=== PATIENT | female | born 1975 ===

== ENCOUNTER 2021-02-12 09:00 | Emergency (ER) | payer SELFPAY ==
[2021-02-12] MEDS ORDERED: Ketorolac 15 MG/ML SDV IM ONE (09:52)
[2021-02-12] MEDS ORDERED: Acetaminophen/HYDROcodone 325-5 MG Tab PO ONE (10:32)
--- NOTE | 2021-02-12 10:41 | CR ---
INDICATION: Pain right ribcage . Comparison: None. TECHNIQUE: Five view study chest and right rib cage detail . Findings: No evidence of fracture involving the right ribcage. No pneumothorax or pleural effusion. Normal size cardiac silhouette. No evidence of acute pneumonic infiltrates. IMPRESSION: Negative radiographic examination of the chest and right rib cage detail. Dictated by Suzanne Bethea MD @ 02/12/2021 10:40:[address] Suzanne Bethea @ Feb 12 2021 10:40AM
[2021-02-12 11:35] LABS: BLOOD UREA NITROGEN,BUN 8 mg/dL (7.0-18.0); CARBON DIOXIDE,CO2 27.4 mmol/L (21.0-32.0); CHLORIDE,CL 102 mmol/L (98-107); GLUCOSE RANDOM 91 mg/dL (74-106); LIPASE 78 U/L (73-393); POTASSIUM,K 4.3 mmol/L (3.5-5.1); SODIUM,NA 138 mmol/L (136-145)
--- NOTE | 2021-02-12 11:52 | US ---
INDICATION: Upper quadrant pain TECHNIQUE: Ultrasound abdomen limited. Sonographic images of the right upper quadrant were obtained using cadet-scale and color Doppler images. COMPARISON: None FINDINGS: Liver: Normal in size and echotexture. No masses. No intrahepatic biliary dilatation. Hepatopetal portal flow. Gallbladder: No stones or sludge. Normal wall thickness. No pericholecystic fluid. Mildly positive sonographic Rausch sign. Common bile duct: 2 mm. Pancreas: Suboptimally visualized. Right kidney: 9.0 cm. Normal echotexture and cortex. No masses, stones, or hydronephrosis. IMPRESSION: Sonographically normal gallbladder and common bile duct. Mildly positive sonographic Rausch sign. Dictated by Hieu Wilhelm MD @ 02/12/2021 11:50:[address] Hieu Wilhelm @ Feb 12 2021 11:50AM
--- NOTE | 2021-02-12 12:20 | EDM.PDOC ---
ED HPI GENERAL MEDICAL PROBLEM - General Chief Complaint: General Stated Complaint: PAIN IN RIB CAGE LEFT SIDE Time Seen by Provider: 02/12/21 10:12 Source of Information: Reports: Patient History Limitations: Reports: No Limitations - History of Present Illness INITIAL COMMENTS - FREE TEXT/NARRATIVE: HISTORY AND PHYSICAL: History of present illness: Patient is a 45-year-old female who presents to the ED today with concern of right-sided rib pain over the past 2 to 3 days. Patient states that she just recently moved to [place] and has been moving boxes and hanging pictures. Patient states she was originally having some right-sided shoulder pain and states that she was having her friend rub out the knot in her shoulder. Patient states that that was 2 days ago. Patient states that she then started noticing right-sided rib pain that is worse if she takes a big deep breath in. Patient denies any direct trauma or injury but states that she does notice moving boxes and pictures does hurt the area. Patient denies any other symptoms or concerns. Patient denies fever, chills, chest pain, shortness of breath, or cough. Denies headache, neck stiff ness, change in vision, syncope, or near syncope. Denies nausea, vomiting, abdominal pain, diarrhea, constipation, or dysuria. Has not noted any blood in urine or stool. Patient has been eating and drinking appropriately. Review of systems: As per history of present illness and below otherwise all systems reviewed and negative. Past medical history: As per history of present illness and as reviewed below otherwise noncontributory. Surgical history: As per history of present illness and as reviewed below otherwise noncontributory. Social history: See social history for further information Family history: As per history of present illness and as reviewed below otherwise noncontributory. Physical exam: General: Patient is alert, oriented, and in no acute distress. Patient standing on exam table, holding right lower rib area. Vitals stable and reviewed by me. HEENT: Atraumatic, normocephalic, pupils equal and reactive bilaterally, negative for conjunctival pallor or scleral icterus, mucous membranes moist, TMs normal bilaterally, throat clear, neck supple, nontender, trachea midline. No drooling or trismus noted. No meningeal signs. No hot potato voice noted. Lungs: Clear to auscultation, breath sounds equal bilaterally, chest nontender. Heart: S1S2, regular rate and rhythm without overt murmur Abdomen: Pain to palpation of ribs #9-10 on the anterior rib cage which difficult to distinguish from RUQ as area is tender with negative dominique sign. Otherwise, Soft, nondistended, nontender. Negative for masses or hepatosplenomegaly. Negative for costovertebral tenderness. Pelvis: Stable nontender. Genitourinary: Deferred. Rectal: Deferred. Skin: Intact, warm, dry. No lesions or rashes noted. Extremities: Atraumatic, negative for cords or calf pain. Neurovascular unremarkable. Neuro: Awake, alert, oriented. Cranial nerves II through XII unremarkable. Cerebellum unremarkable. Motor and sensory unremarkable throughout. Exam nonfocal. Notes: On initial exam, patient is vitally stable, nontoxic, but does have discomfort of her anterior right rib cage and to the right upper abdomen without guarding, negative rebound. Will obtain basic labwork, XR of right ribs/chest and RUQ US. CBC shows mild leukocytosis at 11.16 and other mild derangements that are unremarkable. CMP is unremarkable. Urinalysis is clear. Urine hCG negative. Rib x-ray shows negative radiographic examination of the chest and right rib cage. Right upper quadrant ultrasound shows sonographically normal gallbladder and common bile duct. Upon reevaluation of patient, she is much more comfortable given therapeutics today in the ED and is sitting comfortably on exam table. Patient remains vitally stable. Signs and symptoms that were prompt return to the ED thoroughly discussed with patient. Discussed importance for follow-up with a primary care provider. Voices understanding and is agreeable to plan of care. Denies any further questions or concerns at this time. Diagnostics: CBC, CMP, UA, Uhcg, Rib w chest CXR, RUQ US Therapeutics: Toradol, [place] 5/325 Prescription: None Impression: Right rib pain Plan: 1. Rest, ice, elevate the affected area. You can apply ice 15 minutes on, 15 minutes off. 2. Tylenol and/or Ibuprofen as directed for pain management or discomfort. 3. Follow up with the primary care provider as discussed. Return to the ED as needed and as discussed. Definitive disposition and diagnosis as appropriate pending reevaluation and review of above. right shoulder & right ribs Pain Score (Numeric/FACES): 10 - Related Data Allergies Allergy/AdvReac Type Severity Reaction Status Date / Time No Known Allergies Allergy Verified 02/12/21 09:56 Home Meds: Home Meds . [No Known Home Meds] 02/12/21 [History] Past Medical History - Past Health History Medical/Surgical History: Denies Medical/Surgical History Social & Family History - Family History Family Medical History: No Pertinent Family History - Tobacco Use Tobacco Use Status *Q: Never Tobacco User - Recreational Drug Use Recreational Drug Use: No ED ROS GENERAL - Review of Systems Review Of Systems: Comprehensive ROS is negative, except as noted in HPI. ED EXAM, GENERAL - Physical Exam Exam: See Below (see dictation) Course - Vital Signs Last Recorded V/S: Last Vital Signs Temp 96.8 F L 02/12/21 09:54 Pulse 88 02/12/21 12:41 Resp 18 02/12/21 09:54 BP 118/73 02/12/21 12:41 Pulse Ox 94 L 02/12/21 12:41 - Orders/Labs/Meds Labs: Laboratory Tests 02/12/21 02/12/21 02/12/21 Range/Units 10:22 10:22 10:51 WBC 11.16 H (4.0-11.0) K/uL RBC 5.03 (4.30-5.90) M/uL Hgb 13.3 (12.0-16.0) g/dL Hct 40.8 (36.0-46.0) % MCV 81.1 (80.0-98.0) fL MCH 26.4 L (27.0-32.0) pg MCHC 32.6 (31.0-37.0) g/dL RDW Std Deviation 38.6 (28.0-62.0) fl RDW Coeff of Debby 13 (11.0-15.0) % Plt Count 444 H (150-400) K/uL MPV 8.60 (7.40-12.00) fL Neut % (Auto) 77.0 (48.0-80.0) % Lymph % (Auto) 15.5 L (16.0-40.0) % Lawrence % (Auto) 6.6 (0.0-15.0) % Eos % (Auto) 0.7 (0.0-7.0) % Baso % (Auto) 0.2 (0.0-1.5) % Neut # (Auto) 8.6 H (1.4-5.7) K/uL Lymph # (Auto) 1.7 (0.6-2.4) K/uL Lawrence # (Auto) 0.7 (0.0-0.8) K/uL Eos # (Auto) 0.1 (0.0-0.7) K/uL Baso # (Auto) 0.0 (0.0-0.1) K/uL Nucleated RBC % 0.0 /100WBC Nucleated RBCs # 0 K/uL Sodium (136-145) mmol/L Potassium (3.5-5.1) mmol/L Chloride (98-107) mmol/L Carbon Dioxide (21.0-32.0) mmol/L BUN (7.0-18.0) mg/dL Creatinine (0.6-1.0) mg/dL Est Cr Clr Drug Dosing mL/min Estimated GFR (MDRD) ml/min Glucose (74-106) mg/dL Calcium (8.5-10.1) mg/dL Total Bilirubin (0.2-1.0) mg/dL AST (15-37) IU/L ALT (14-63) IU/L Alkaline Phosphatase (46-116) U/L Troponin I (0.000-0.056) ng/mL Total Protein (6.4-8.2) g/dL Albumin (3.4-5.0) g/dL Globulin (2.6-4.0) g/dL Albumin/Globulin Ratio (0.9-1.6) Lipase (73-393) U/L Urine Color YELLOW Urine Appearance CLEAR Urine pH 6.5 (5.0-8.0) Ur Specific Shorter 1.010 (1.001-1.035) Urine Protein NEGATIVE (NEGATIVE) mg/dL Urine Glucose (UA) NEGATIVE (NEGATIVE) mg/dL Urine Ketones NEGATIVE (NEGATIVE) mg/dL Urine Occult Blood NEGATIVE (NEGATIVE) Urine Nitrite NEGATIVE (NEGATIVE) Urine Bilirubin NEGATIVE (NEGATIVE) Urine Urobilinogen 0.2 (<2.0) EU/dL Ur Leukocyte Esterase NEGATIVE (NEGATIVE) Urine HCG, Qual NEGATIVE (NEGATIVE) 02/12/21 Range/Units 10:51 WBC (4.0-11.0) K/uL RBC (4.30-5.90) M/uL Hgb (12.0-16.0) g/dL Hct (36.0-46.0) % MCV (80.0-98.0) fL MCH (27.0-32.0) pg MCHC (31.0-37.0) g/dL RDW Std Deviation (28.0-62.0) fl RDW Coeff of Debby (11.0-15.0) % Plt Count (150-400) K/uL MPV (7.40-12.00) fL Neut % (Auto) (48.0-80.0) % Lymph % (Auto) (16.0-40.0) % Lawrence % (Auto) (0.0-15.0) % Eos % (Auto) (0.0-7.0) % Baso % (Auto) (0.0-1.5) % Neut # (Auto) (1.4-5.7) K/uL Lymph # (Auto) (0.6-2.4) K/uL Lawrence # (Auto) (0.0-0.8) K/uL Eos # (Auto) (0.0-0.7) K/uL Baso # (Auto) (0.0-0.1) K/uL Nucleated RBC % /100WBC Nucleated RBCs # K/uL Sodium 138 (136-145) mmol/L Potassium 4.3 (3.5-5.1) mmol/L Chloride 102 (98-107) mmol/L Carbon Dioxide 27.4 (21.0-32.0) mmol/L BUN 8 (7.0-18.0) mg/dL Creatinine 0.9 (0.6-1.0) mg/dL Est Cr Clr Drug Dosing 69.60 mL/min Estimated GFR (MDRD) > 60.0 ml/min Glucose 91 (74-106) mg/dL Calcium 8.9 (8.5-10.1) mg/dL Total Bilirubin 0.3 (0.2-1.0) mg/dL AST 19 (15-37) IU/L ALT 31 (14-63) IU/L Alkaline Phosphatase 124 H (46-116) U/L Troponin I < 0.050 (0.000-0.056) ng/mL Total Protein 8.2 (6.4-8.2) g/dL Albumin 3.0 L (3.4-5.0) g/dL Globulin 5.2 H (2.6-4.0) g/dL Albumin/Globulin Ratio 0.6 L (0.9-1.6) Lipase 78 (73-393) U/L Urine Color Urine Appearance Urine pH (5.0-8.0) Ur Specific Shorter (1.001-1.035) Urine Protein (NEGATIVE) mg/dL Urine Glucose (UA) (NEGATIVE) mg/dL Urine Ketones (NEGATIVE) mg/dL Urine Occult Blood (NEGATIVE) Urine Nitrite (NEGATIVE) Urine Bilirubin (NEGATIVE) Urine Urobilinogen (<2.0) EU/dL Ur Leukocyte Esterase (NEGATIVE) Urine HCG, Qual (NEGATIVE) Meds: Medications Discontinued Medications Generic Name Dose Route Start Last Admin Trade Name Freq PRN Reason Stop Dose Admin Hydrocodone Bitart/Acetaminophen 1 tab 02/12/21 10:32 02/12/21 10:50 Acetaminophen/Hydrocodone 325-5 Mg Tab PO 02/12/21 10:33 1 tab ONETIME ONE Administration Ketorolac Tromethamine 15 mg 02/12/21 09:52 02/12/21 10:25 Ketorolac 15 Mg/Ml Sdv IM 02/12/21 09:53 15 mg ONETIME ONE Administration Departure - Departure Time of Disposition: 12:19 Disposition: Home, Self-Care 01 Clinical Impression: Rib pain on right side - Discharge Information Instructions: Chest Wall Pain, [id number] Referrals: PCP,None [Primary Care Provider] - Forms: ED Department Discharge Additional Instructions: The following information is given to patients seen in the emergency department who are being discharged to home. This information is to outline your options for follow-up care. We provide all patients seen in our emergency department with a follow-up referral. The need for follow-up, as well as the timing and circumstances, are variable depending upon the specifics of your emergency department visit. If you don't have a primary care physician on staff, we will provide you with a referral. We always advise you to contact your personal physician following an emergency department visit to inform them of the circumstance of the visit and for follow-up with them and/or the need for any referrals to a consulting specialist. The emergency department will also refer you to a specialist when appropriate. This referral assures that you have the opportunity for follow-up care with a specialist. All of these measure are taken in an effort to provide you with optimal care, which includes your follow-up. Under all circumstances we always encourage you to contact your private physician who remains a resource for coordinating your care. When calling for follow-up care, please make the office aware that this follow-up is from your recent emergency room visit. If for any reason you are refused follow-up, please contact the [facility] Emergency Department at and asked to speak to the emergency department charge nurse. [facility] [address] [place] [id number] [facility] [address] [place] [id number] 1. Rest, ice, elevate the affected area. You can apply ice 15 minutes on, 15 minutes off. 2. Tylenol and/or Ibuprofen as directed for pain management or discomfort. 3. Follow up with the primary care provider as discussed. Return to the ED as needed and as discussed. Sepsis Event Note (ED) - Evaluation Sepsis Screening Result: No Definite Risk - Focused Exam Vital Signs: Vital Signs Temp Pulse Resp BP Pulse Ox 02/12/21 12:41 88 118/73 94 L 02/12/21 09:54 96.8 F L 85 18 156/87 H 98
--- NOTE | 2021-02-13 21:13 | PCM.EKG ---
#1 Interpretation EKG Date: 02/12/21 Time: 10:39 Rhythm: NSR Rate (Beats/Min): 83 Gilbert: LAD-Left Gilbert Deviation P-Wave: Present QRS: Normal ST-T: Normal QT: Normal Comparison: NA - No Prior EKG EKG Interpretation Comments: Sinus Rhythm with incomplete RBBB
== END 2021-02-12 12:42 | disposition home or self-care (01) ==
LOC: MW.ED 09:00
DX: R07.81 Pleurodynia (principal)
CPT/HCPCS: 36415; 71101; 76705; 80053; 81003; 81025; 83690; 84484; 85025; 93005; 96372; 99284; A9270; J1885; 99282

== ENCOUNTER 2023-01-17 22:44 | Emergency (ER) | payer SELFPAY ==
[2023-01-17] MEDS ORDERED: cloNIDine 0.1 MG Tab PO ONE (23:05)
[2023-01-17] MEDS ORDERED: Lisinopril/Hydrochlorothiazide 10-12.5 MG Tab PO ONE (23:05)
[2023-01-18 00:36] LABS: CARBON DIOXIDE,CO2 25.5 mmol/L (21.0-32.0); POTASSIUM,K 3.9 mmol/L (3.5-5.1)
== END 2023-01-18 01:02 ==
LOC: MW.ED 22:44
DX: I10 Essential (primary) hypertension (principal); Z79.899 Other long term (current) drug therapy
CPT/HCPCS: 36415; 80048; 84484; 85025; 93005; 99283; A9270; 93010

== ENCOUNTER 2023-01-23 19:57 | Emergency (ER) | payer OTHER ==
[2023-01-23] MEDS ORDERED: Labetalol 100 MG/20 ML MDV IVPUSH ONE ×2 (22:39→23:24)
[2023-01-23 23:28] LABS: CARBON DIOXIDE,CO2 31.6 mmol/L (21.0-32.0); POTASSIUM,K 4.5 mmol/L (3.5-5.1)
== END 2023-01-24 00:05 | disposition home or self-care (01) ==
LOC: MW.ED 19:57
DX: I10 Essential (primary) hypertension (principal); Z79.899 Other long term (current) drug therapy
CPT/HCPCS: 36415; 80053; 83735; 84484; 85025; 93005; 96374; 96376; 99283; J3490

== ENCOUNTER 2023-01-29 22:12 | Emergency (ER) | payer SELFPAY ==
[2023-01-29 23:49] LABS: CARBON DIOXIDE,CO2 31.1 mmol/L (21.0-32.0)
== END 2023-01-30 00:54 ==
LOC: MW.ED 22:12
DX: I10 Essential (primary) hypertension (principal); Z79.899 Other long term (current) drug therapy
CPT/HCPCS: 36415; 80053; 93005; 93010; 99283; 99284

== ENCOUNTER 2023-02-14 00:15 | Emergency (ER) | payer OTHER ==
[2023-02-14] MEDS ORDERED: Sodium Chloride 0.9% 10 ML Syringe FLUSH PRN (01:01)
[2023-02-14] MEDS ORDERED: Metoclopramide 10 MG/2 ML SDV IVPUSH ONE (01:01)
[2023-02-14] MEDS: Sodium Chloride 0.9% 2.5 ML Syringe FLUSH PRN ×2 (01:21→01:22)
== END 2023-02-14 03:01 ==
LOC: MW.ED 00:15
DX: I10 Essential (primary) hypertension (principal); Z79.899 Other long term (current) drug therapy
CPT/HCPCS: 96374; 99284; J2765; J3490

== ENCOUNTER 2023-02-20 23:29 | Emergency (ER) | payer SELFPAY ==
[2023-02-20] MEDS ORDERED: amLODIPine 5 MG Tab PO ONE (23:42)
== END 2023-02-20 23:56 | disposition home or self-care (01) ==
LOC: MW.ED 23:29
DX: I10 Essential (primary) hypertension (principal)
CPT/HCPCS: 99283; A9270

== ENCOUNTER 2023-03-05 22:06 | Emergency (ER) | payer SELFPAY ==
[2023-03-05 22:55] LABS: CORONAVIRUS COVID-19 NAA POSITIVE (NEGATIVE); INFLUENZA A NAA NEGATIVE (NEGATIVE); INFLUENZA B NAA NEGATIVE (NEGATIVE)
== END 2023-03-05 23:29 | disposition home or self-care (01) ==
LOC: MW.ED 22:06
DX: U07.1 COVID-19 (principal); I10 Essential (primary) hypertension
CPT/HCPCS: 0240U; 71045; 99284; 99283

== ENCOUNTER 2023-04-27 06:45 | Emergency (ER) | payer SELFPAY | END 2023-04-27 08:24 | LOC: MW.ED 06:45 | DX: I10 Essential (primary) hypertension (principal); Z79.899 Other long term (current) drug therapy | CPT/HCPCS: 99282; 99283 ==

== ENCOUNTER 2023-06-01 14:51 | Emergency (ER) | payer MEDICAID ==
[2023-06-01] MEDS ORDERED: Lisinopril/Hydrochlorothiazide 10-12.5 MG Tab PO ONE (15:39)
== END 2023-06-01 17:10 ==
LOC: MW.ED 14:51
DX: J02.9 Acute pharyngitis, unspecified (principal); I10 Essential (primary) hypertension; Z02.89 Encounter for other administrative examinations
CPT/HCPCS: 87651; 99283; A9270